=== PATIENT | male | born 1980 | race Caucasian/White ===

== ENCOUNTER 2016-11-04 09:56 | Emergency (ER) | payer SELFPAY ==
[2016-11-04 10:01] VITALS: BP 132/66; PULSE 56; TEMP 9; BMI 36.0
--- NOTE | 2016-11-04 11:17 | PDOC ---
History of Present Illness - General Chief Complaint: Back Pain Stated Complaint: FALL/ BACK PAIN Time Seen by Provider: 11/04/16 11:14 History Source: Patient Exam Limitations: No Limitations - History of Present Illness Initial Comments: 11/04/16 11:16 Chief complaint: Left lateral and posterior rib pain and lower back pain History of present illness: Patient is a 36-year-old male with no significant medical problems here today after falling and hitting her left torso she is currently complaining of the left lateral posterior rib pain and lower back pain on the left side. He reports that the pain is currently a 10 out of 10. Patient did not take anything for pain. Patient was shoveling snow when he fell. Patient denies hitting his head or any other injuries. Patient reports the pain is worse in the rib and area with any movement or deep breathing. Denies any hematuria. 11/04/16 11:26 11/04/16 12:37 11/04/16 12:39 11/04/16 22:51 Occurred: reports: just prior to arrival Severity: reports: moderate Pain Location: reports: back (left sided lower, left lateral/posterior rib area) Method of Injury: Yes: fall (unto left side ) Modifying Factors: improves with: immobilization Loss of Consciousness: no loss of consciousness Associated Symptoms (Fall): denies symptoms Past History - Past Medical History Allergies/Adverse Reactions: Allergies Allergy/AdvReac Type Severity Reaction Status Date / Time No Known Allergies Allergy Verified 11/04/16 09:57 Home Medications: Ambulatory Orders Cyclobenzaprine HCl [Flexeril -] 10 mg PO Q8H PRN #20 tablet 11/04/16 Oxycodone HCl/Acetaminophen [Percocet 5-325 mg Tablet] 1 tab PO Q6H PRN #11 tablet MDD 4 11/04/16 Other medical history: denies - Psycho/Social/Smoking Cessation Hx Anxiety: No Suicidal Ideation: No Smoking History: Never smoked Information on smoking cessation initiated: No Hx Alcohol Use: No Drug/Substance Use Hx: No Substance Use Type: None Review of Systems - Review of Systems Able to Perform ROS?: Yes Constitutional: No: Symptoms Reported HEENTM: No: Symptoms Reported Respiratory: No: Symptoms reported Cardiac (ROS): No: Symptoms Reported ABD/GI: No: Symptoms Reported : No: Symptoms Reported Musculoskeletal: Yes: Back Pain (left lower back ), Joint Pain (left lateral/ posterior rib pain). No: Neck Pain Integumentary: No: Symptoms Reported Neurological: No: Symptoms reported *Physical Exam - Vital Signs Last Vital Signs Temp Pulse Resp BP Pulse Ox 9 F L 56 L 20 132/66 100 11/04/16 09:58 11/04/16 09:58 11/04/16 09:58 11/04/16 09:58 11/04/16 09:58 - Physical Exam General Appearance: Yes: Appropriately Dressed Neck: negative: Tender, Decreased range of motion, Rigidity, Tender lateral, Tender midline Respiratory/Chest: positive: Lungs Clear, Normal Breath Sounds. negative: Chest Tender, Respiratory Distress Cardiovascular: positive: Regular Rhythm, Regular Rate, S1, S2 Musculoskeletal: positive: Normal Inspection, Decreased Range of Motion (from waist ), Other (left lower back pain, left lateral/posterior rib pain ). negative: CVA Tenderness, CVA Tenderness (R), CVA Tenderness (L), Vertebral Tenderness Extremity: positive: Normal Capillary Refill, Normal Inspection, Normal Range of Motion Integumentary: positive: Normal Color Neurologic: positive: Alert, Normal Response, Motor Strength 5/5 (lower extremities b/l ), Responsive, Other (negative ). negative: Respond to painful stimul, Sensory Deficit (legs b/l ) ED Treatment Course - LABORATORY CBC & Chemistry Diagram: 11/04/16 14:10 11/04/16 14:10 Medical Decision Making - Medical Decision Making 11/04/16 11:28 Patient is a 36-year-old male with no significant medical problems here today after falling and hitting her left torso she is currently complaining of the left lateral posterior rib pain and lower back pain on the left side. He reports that the pain is currently a 10 out of 10. Patient did not take anything for pain. Patient was shoveling snow when he fell. Patient denies hitting his head. Or any other injuries. Patient reports the pain is worse in the rib and area with any movement or deep breathing. r/o rule out fracture ribs left-sided left lower back pain left sided rib contusions PLAN: xray left rib series no fracture noted per Dr. Maza xray lumbar sacral spine no gross abnormality except for wedging of T [address] Maza Toradol 60 mg IM 11/04/16 11:35 11/04/16 12:40 urinalysis 11/04/16 12:43 ortho referral 11/04/16 13:24 11/04/16 13:52 11/04/16 13:53 11/04/16 13:53 11/04/16 14:53 Laboratory Tests 11/04/16 11/04/16 11:40 14:10 WBC 11.9 H RBC 5.18 Hgb 15.7 Hct 46.0 MCV 88.8 MCHC 34.1 RDW 12.9 Plt Count 217 MPV 7.3 L Neutrophils % 83.5 H Lymphocytes % 10.9 Monocytes % 3.7 L Eosinophils % 1.6 Basophils % 0.3 Urine Color Dkyellow Urine Appearance Cloudy Urine pH 5.0 Ur Specific [place] 1.029 Urine Protein 1+ H Urine Glucose (UA) Negative Urine Ketones Negative Urine Blood 2+ H Urine Nitrite Negative Urine Bilirubin Negative Urine Urobilinogen 2.0 e.u/dl Ur Leukocyte Esterase Negative Urine RBC 22 Urine WBC 11 Ur Epithelial Cells Rare Granular Casts 7 Urine Mucus Many 11/04/16 15:17 Laboratory Tests 11/04/16 14:10 Sodium 139 Potassium 4.2 Chloride 106 Carbon Dioxide 23 Anion Gap 10 BUN 21 H Creatinine 0.9 Random Glucose 93 Calcium 9.6 11/04/16 15:18 Pelvic/abdomen Cat Scan with IV contrast only both kidneys appear unremarkable. No gross organmegaly or organ injury is seen. No free fluid or free air in the abdomen and pelvis. 9mm and left adrenal nodule that statistically may represent an adrenal adenoma per Dr. Liu c/o pain left lower back percocet 5mg/325mg po now than every 6 hrs prn pain # 11 11/04/16 17:36 continue to have left sided lower muscular back pain with movement flexeril 10 mg po now than every 8 hrs prn muscle spasm # 20 explained to pt not to take flexeril within 4 hours of percocet Follow-up with urology follow with orthopedist as soon as possible 11/04/16 18:12 pain less left lower back will discharge to home *DC/Admit/Observation/Transfer Diagnosis at time of Disposition: Traumatic hematuria Contusion of rib on left side Qualifiers: Encounter type: initial encounter Qualified Code(s): S20.212A - Contusion of left front wall of thorax, initial encounter - Discharge Dispostion Disposition: HOME Condition at time of disposition: Stable - Prescriptions Prescriptions: Cyclobenzaprine HCl [Flexeril -] 10 mg PO Q8H PRN #20 tablet PRN Reason: Muscle Spasms Oxycodone HCl/Acetaminophen [Percocet 5-325 mg Tablet] 1 tab PO Q6H PRN #11 tablet MDD 4 PRN Reason: Severe Pain - Referrals Referrals: Ad Osborne MD [Staff Physician] - Ranjit Fink MD [Staff Physician] - - Patient Instructions Additional Instructions: Avoid Any strenuous activities or exercise Follow up with orthopedist if pain continues within the next few days Follow Up with urologist as soon as possible Return to emergency room if any numbness of groin area or legs or worsening pain or blood noted in urine Patient voiced understanding of discharge instructions and all questions were answered
[2016-11-04] MEDS ORDERED: KETOROLAC TROMETHAMINE 60 MG/2 ML VIAL IM ONE (11:29)
[2016-11-04] MEDS ORDERED: KETOROLAC TROMETHAMINE 60 MG/2 ML VIAL ONE (11:30)
[2016-11-04 13:07] LABS: URINE APPEARANCE CLOUDY; URINE BILIRUBIN NEGATIVE (NEGATIVE); URINE COLOR DKYELLOW; URINE GLUCOSE (UA) NEGATIVE (NEGATIVE); URINE KETONE NEGATIVE (NEGATIVE); URINE LEUK ESTERASE NEGATIVE (NEGATIVE); URINE NITRITE NEGATIVE (NEGATIVE); URINE UROBILINOGEN 2.0 E.U/dl E.U./dl (0.2-1.0)
[2016-11-04 13:54] LABS: URINE BLOOD 2+ (NEGATIVE); URINE PROTEIN 1+ (NEGATIVE)
[2016-11-04 13:56] LABS: GRANULAR CASTS 7 /lpf; URINE MUCUS MANY; URINE RBC 22 /hpf (0-3); URINE WBC 11 /hpf (3-5)
[2016-11-04 14:21] LABS: BASOPHIL 0.3 % (0-2.0); EOSINOPHIL 1.6 % (0-4.5); MCH 30.3 pg (25.7-33.7); MCHC 34.1 g/dl (32.0-35.9); MEAN CELL VOLUME 88.8 fl (80-96); MEAN PLT VOLUME 7.3 fl (7.5-11.1); NEUTROPHILS 83.5 % (42.8-82.8); PLATELET COUNT 217 K/MM3 (134-434); RDW 12.9 % (11.9-15.9); WHITE BLOOD COUNT 11.9 K/mm3 (4.0-10.0)
[2016-11-04 14:52] LABS: CALCIUM 9.6 mg/dL (8.5-10.1); CREATININE 0.9 mg/dL (0.7-1.3)
[2016-11-04] MEDS ORDERED: OXYCODONE/APAP 5/325MG COMBO TABLET ONE (16:37)
[2016-11-04] MEDS ORDERED: OXYCODONE/APAP 5/325MG COMBO TABLET PO ONE (16:39)
[2016-11-04] MEDS ORDERED: CYCLOBENZAPRINE HCL 10 MG TABLET (FP) ONE (17:36)
== END 2016-11-04 18:35 | disposition home or self-care (01) ==
LOC: JERFT 09:56
PROC: 3E0233Z Introduction of Anti-inflammatory into Muscle, Percutaneous Approach (ICD-10-PCS; principal; 2016-11-04)
DX: S20.212A Contusion of left front wall of thorax, initial encounter (principal); W00.0XXA Fall on same level due to ice and snow, initial encounter; Y93.H1 Activity, digging, shoveling and raking; Y92.9 Unspecified place or not applicable; R31.9 Hematuria, unspecified
CPT/HCPCS: 36415; 71101-TC; 72100-TC; 72193-TC; 74160-TC; 80048; 81003; 81015; 85025; 99281-25